=== PATIENT | female | born 1950 | race Caucasian/White ===

== ENCOUNTER → 2016-04-13 | Outpatient (CLI) | payer OTHER, MEDICARE ==
--- NOTE | 2016-04-13 13:09 | RAD ---
EXAM: Renal/retroperitonal ultrasound HISTORY: Hematuria and flank pain. COMPARISON: None. FINDINGS: Ultrasound of the kidneys, bladder and retroperitoneum was performed. The right kidney measures 10.1 cm. Cortical thickness and echogenicity are preserved. There is no hydronephrosis. A hypoechoic focus at the upper pole measures 2.0 x 1.6 cm in is consistent with a cyst. This has correlates on prior studies. The left kidney measures 10.4 cm. Cortical thickness and echogenicity are preserved. There is no hydronephrosis. The liver appears enlarged. Diffuse hepatic steatosis is suspected. The bladder is decompressed and not well visualized. IMPRESSION: 1. Unremarkable examination of the kidneys. No hydronephrosis. 2.0 cm right renal cyst. 2. Hepatomegaly and diffuse hepatic steatosis.
== END | disposition home or self-care (01) ==
LOC: US 11:43
PROVIDERS: ATTEND Internal Medicine
DX: K76.0 Fatty (change of) liver, not elsewhere classified (principal); N28.1 Cyst of kidney, acquired; R16.0 Hepatomegaly, not elsewhere classified; J45.998 Other asthma; I10 Essential (primary) hypertension
CPT/HCPCS: 76770

== ENCOUNTER → 2016-04-18 | Outpatient (CLI) | payer OTHER, MEDICARE ==
--- NOTE | 2016-04-18 11:00 | KCIC ---
Bilateral digital screening mammograms with CAD: HISTORY Routine screening. COMPARISON Comparison is made to previous study dated 12/03/2014. FINDINGS Breast density category C. The skin and nipples show no abnormalities. No abnormal lymph nodes are seen in the axilla. The breast parenchyma shows heterogeneous density. There continues to be some patchy parenchymal asymmetry. There are no dominant masses, suspicious calcifications or architectural distortions. Benign appearing calcifications are present. IMPRESSION No evidence of malignancy. Recommend routine annual mammographic screening. This study was interpreted with the benefit of Computerized Aided Detection (CAD). Mammography is not 100% sensitive in detecting breast cancer. Therefore, a self breast exam and a clinical breast exam are very important. A negative mammogram does not negate a clinically suspicious finding and should not result in a delay in biopsying a clinically suspicious abnormality. BI-RADS category 2. Benign. This patient's information has been entered into a reminder system for the patient to be notified with the results of this examination and a target date for her next mammograms. Electronically signed by: Rita Mccann MD (Apr 18, 2016 10:58:40)
== END | disposition home or self-care (01) ==
LOC: KCIC MAMMO 08:57
PROVIDERS: ATTEND Internal Medicine
DX: Z12.31 Encounter for screening mammogram for malignant neoplasm of breast (principal)
CPT/HCPCS: G0202; 77067

== ENCOUNTER 2016-12-27 16:43 | Emergency (ER) | payer OTHER, MEDICARE ==
[~2016-12-27] VITALS: Ht 160 cm; Wt 80.7 kg
[2016-12-27 17:00] VITALS: BP 164/80
--- NOTE | 2016-12-27 17:47 | RAD ---
EXAM: Right Lower extremity venous Doppler. HISTORY: Right lower extremity pain COMPARISON: None. FINDINGS: Grayscale and Doppler analysis of the Right Lower extremity deep venous systems was performed with graded compression and augmentation. The right common femoral, femoral, and popliteal veins are widely patent with normal color Doppler imaging. Limited images of the right calf veins are unremarkable. IMPRESSION: No evidence of DVT in the right lower extremity. Electronically signed by: Timur Castro MD (12/27/2016 5:44 PM) [facility]
[2016-12-27] MEDS ORDERED: HYDROcodone/APAP 5/325MG 1 TAB TABLET PO ONE (18:00)
--- NOTE | 2016-12-27 18:19 | PHYS DOC ---
Past Medical History Past Medical History: Diabetes-Type II, Kidney Stone, Other Additional Past Medical Histor: lupus, chrons, knee shoulder and back pain Past Surgical History: Hysterectomy, Other Additional Past Surgical Histo: hernia, k stones, back Alcohol Use: Rarely Drug Use: None Adult General Chief Complaint Chief Complaint: LOWER EXT PAIN HPI HPI Patient is a 66 year old female presents the ED complaining of right leg injury times one day. States she was shyness when he lifted her leg and to wash it and felt a pull in the back side of her leg. Patient has a history of chronic leg pain. Describes the pain as sharp. Rates the pain as 8/10. His fever , chest pain, shortness of breath, abdominal pain, trauma, headache, syncope or vision changes. Review of Systems Review of Systems Constitutional: Denies fever or chills [] Eyes: Denies change in visual acuity, redness, or eye pain [] HENT: Denies nasal congestion or sore throat [] Respiratory: Denies cough or shortness of breath [] Cardiovascular: No additional information not addressed in HPI [] GI: Denies abdominal pain, nausea, vomiting, bloody stools or diarrhea [] : Denies dysuria or hematuria [] Musculoskeletal: Denies back pain. Complains of right knee pain.[] Integument: Denies rash or skin lesions [] Neurologic: Denies headache, focal weakness or sensory changes [] Endocrine: Denies polyuria or polydipsia [] All other systems were reviewed and found to be within normal limits, except as documented in this note. Current Medications Current Medications Current Medications Medications (Trade) Dose Ordered Sig/Rama Start Time Stop Time Status Last Admin Dose Admin Acetaminophen/ Hydrocodone Bitart (Lortab 5/325) 1 tab 1X ONCE 12/27/16 18:00 12/27/16 18:01 DC 12/27/16 18:05 1 TAB Allergies Allergies Allergies Coded Allergies Type Severity Reaction Last Updated Verified No Known Drug Allergies 12/27/16 No Physical Exam Physical Exam Constitutional: Well developed, well nourished, no acute distress, non-toxic appearance. [] HENT: Normocephalic, atraumatic, bilateral external ears normal, oropharynx moist, no oral exudates, nose normal. [] Eyes: PERRLA, EOMI, conjunctiva normal, no discharge. [] Neck: Normal range of motion, no tenderness, supple, no stridor. [] Cardiovascular:Heart rate regular rhythm, no murmur [] Lungs & Thorax: Bilateral breath sounds clear to auscultation [] Abdomen: Bowel sounds normal, soft, no tenderness, no masses, no pulsatile masses. [] Skin: Warm, dry, no erythema, no rash. [] Back: No tenderness, no CVA tenderness. [] Extremities: MILD RIGHT KNEE AND CALF TENDERNESS. no cyanosis, no clubbing, ROM intact, no edema. [] Neurologic: Alert and oriented X 3, normal motor function, normal sensory function, no focal deficits noted. [] Psychologic: Affect normal, judgement normal, mood normal. [] Current Patient Data Vital Signs Vital Signs Date Time Temp Pulse Resp B/P (MAP) Pulse Ox O2 Delivery O2 Flow Rate FiO2 12/27/16 18:05 Room Air 12/27/16 17:00 98.6 87 20 95 98.6 EKG EKG [] Radiology/Procedures Radiology/Procedures PROCEDURE: VENOUS LOWER EXTREMITY RIGHT EXAM: Right Lower extremity venous Doppler. HISTORY: Right lower extremity pain COMPARISON: None. FINDINGS: Grayscale and Doppler analysis of the Right Lower extremity deep venous systems was performed with graded compression and augmentation. The right common femoral, femoral, and popliteal veins are widely patent with normal color Doppler imaging. Limited images of the right calf veins are unremarkable. IMPRESSION: No evidence of DVT in the right lower extremity. Electronically signed by: Timur Castro MD (12/27/2016 5:44 PM) [facility][] PROCEDURE: KNEE RIGHT 3V Three-view right knee study: History: Fell today. Pain. Findings: No acute fracture or dislocation or osteolytic process is seen. 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 There is an area of popcorn-like calcification within the upper aspect of the suprapatellar recess. This could represent a loose body or synovial osteochondromatosis of the suprapatellar recess. If this is outside the suprapatellar recess, then this may represent myositis ossificans. Small right knee joint effusion is seen. IMPRESSION: No acute osseous abnormality. See discussion above for additional findings. Course & Med Decision Making Course & Med Decision Making Pertinent Labs and Imaging studies reviewed. (See chart for details) [Discussed imaging findings with patient. Patient's pain improved. Vital stable , no acute distress. Crutches given. Juanito wrap placed. Neurovascular intact post placement. Discussed follow-up with orthopedics later this week. Discussed symptomatic treatment. Provided contact information/education. Discussed reasons to return to the ED. Patient understands and agrees with plan. Dragon Disclaimer Dragon Disclaimer This electronic medical record was generated, in whole or in part, using a voice recognition dictation system. Departure Departure Impression: Primary Impression: Knee pain Additional Impression: Arthritis Disposition: 01 HOME, SELF-CARE Condition: IMPROVED Referrals: MANA FELICIANO MD (PCP) SHAYNE GOMEZ II, MD Patient Instructions: Arthritis, Nonspecific, Knee Pain Problem Qualifiers JOSE CALHOUN Dec 27, 2016 18:19
--- NOTE | 2016-12-28 07:11 | RAD ---
Three-view right knee study: History: Fell today. Pain. Findings: No acute fracture or dislocation or osteolytic process is seen. 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 There is an area of popcorn-like calcification within the upper aspect of the suprapatellar recess. This could represent a loose body or synovial osteochondromatosis of the suprapatellar recess. If this is outside the suprapatellar recess, then this may represent myositis ossificans. Small right knee joint effusion is seen. IMPRESSION: No acute osseous abnormality. See discussion above for additional findings.
== END 2016-12-27 18:39 | disposition home or self-care (01) ==
LOC: ER 16:43
DX: S89.91XA Unspecified injury of right lower leg, initial encounter (principal); M19.90 Unspecified osteoarthritis, unspecified site; E11.9 Type 2 diabetes mellitus without complications; M32.9 Systemic lupus erythematosus, unspecified; K50.90 Crohn's disease, unspecified, without complications; Z87.442 Personal history of urinary calculi; Z90.710 Acquired absence of both cervix and uterus; Z98.890 Other specified postprocedural states; X50.9XXA Other and unspecified overexertion or strenuous movements or postures, initial encounter; Y93.89 Activity, other specified; Y99.8 Other external cause status; Y92.89 Other specified places as the place of occurrence of the external cause
CPT/HCPCS: 73562; 93971; 99284-25

== ENCOUNTER → 2017-01-04 | Outpatient (CLI) | payer OTHER, MEDICARE ==
[2016-12-27 17:00] VITALS: BP 164/80
--- NOTE | 2017-01-04 14:17 | KCIC ---
Left lower extremity venous doppler ultrasound History: Swelling of left lower extremity Comparison: None Findings: Multiple grayscale, color, and duplex spectral analysis sonographic images were acquired of the left lower extremity veins to evaluate for the presence of DVT. There is normal phasicity. Normal compression, color-flow, and augmentation is demonstrated from the left common femoral to the popliteal veins. There is normal color flow of the proximal greater saphenous and profunda femoris veins. There is normal color flow of segments of the calf veins. There is left popliteal fossa fluid collection 2.4 x 1 x 2 cm. Impression: 1. There is no evidence of deep venous thrombosis from the left common femoral to popliteal veins. Electronically signed by: Guillermo Alonso MD (01/04/2017 2:14 PM) [facility]
== END | disposition home or self-care (01) ==
LOC: KCIC US 13:03
PROVIDERS: ATTEND Nurse Practitioner
DX: M79.89 Other specified soft tissue disorders (principal)
CPT/HCPCS: 93971

== ENCOUNTER 2018-04-22 08:45 | Emergency (ER) | payer OTHER, MEDICARE ==
[~2018-04-22] VITALS: Ht 165.1 cm; Wt 79.1 kg
[2018-04-22] MEDS ORDERED: IV NORMAL SALINE 1000ML BAG 1,000 ML IV SCH (09:09)
[2018-04-22 09:11] LABS: BILIRUBIN,URINE SMALL (NEG); CLARITY,URINE CLEAR; COLOR,URINE AMBER; NITRITE,URINE NEGATIVE (NEG); PROTEIN,URINE NEGATIVE (NEG-TRACE); UROBILINOGEN,URINE 0.2 mg/dL (0.2 mg/dL)
--- NOTE | 2018-04-22 09:11 | PHYS DOC ---
Past Medical History Past Medical History: Diabetes-Type II, Kidney Stone, Other Additional Past Medical Histor: lupus, chrons, knee shoulder and back pain Past Surgical History: Hysterectomy, Other Additional Past Surgical Histo: hernia, k stones, back Alcohol Use: Rarely Drug Use: None Adult General Chief Complaint Chief Complaint: ABDOMINAL PAIN HPI HPI Patient is a 67 year old female who presents with Sunday began having right lower abdominal pain that wraps around to her right flank is sharp in nature with urinary frequency. Patient denies any pain with urination but states she feels like she has to go often and when she sits to go with just a dribble. Review of Systems Review of Systems Constitutional: Denies fever or chills [] Eyes: Denies change in visual acuity, redness, or eye pain [] HENT: Denies nasal congestion or sore throat [] Respiratory: Denies cough or shortness of breath [] Cardiovascular: No additional information not addressed in HPI [] GI: Right lower abdominal pain that wraps around to right back, nausea, denies vomiting, bloody stools or diarrhea [] : Denies dysuria or hematuria [] Musculoskeletal: Denies back pain or joint pain [] Integument: Denies rash or skin lesions [] Neurologic: Denies headache, focal weakness or sensory changes [] All other systems were reviewed and found to be within normal limits, except as documented in this note. Current Medications Current Medications Current Medications Medications (Trade) Dose Ordered Sig/[facility] Start Time Stop Time Status Last Admin Dose Admin Fentanyl Citrate (Fentanyl 2ml Vial) 50 mcg 1X ONCE 04/22/18 09:15 04/22/18 09:16 DC 04/22/18 10:01 50 MCG Ketorolac Tromethamine (Toradol 30mg Vial) 30 mg 1X ONCE 04/22/18 10:45 04/22/18 10:46 Ondansetron HCl (Zofran) 4 mg 1X ONCE 04/22/18 09:15 04/22/18 09:16 DC 04/22/18 09:58 4 MG Sodium Chloride 1,000 ml @ 1,000 mls/hr Q1H 04/22/18 09:09 04/22/18 10:08 DC 04/22/18 09:56 1,000 MLS/HR Allergies Allergies Allergies Coded Allergies Type Severity Reaction Last Updated Verified No Known Drug Allergies 12/27/16 No Physical Exam Physical Exam Constitutional: Well developed, well nourished, no acute distress, non-toxic appearance. [] HENT: Normocephalic, atraumatic, bilateral external ears normal, oropharynx moist, no oral exudates, nose normal. [] Eyes: PERRLA, EOMI, conjunctiva normal, no discharge. [] Neck: Normal range of motion, no tenderness, supple, no stridor. [] Cardiovascular:Heart rate regular rhythm, no murmur [] Lungs & Thorax: Bilateral breath sounds clear to auscultation [] Abdomen: Bowel sounds normal, soft, Right lower quadrant tenderness, no masses, no pulsatile masses. [] Skin: Warm, dry, no erythema, no rash. [] Back: No tenderness, no CVA tenderness. [] Extremities: No tenderness, no cyanosis, no clubbing, ROM intact, no edema. [] Neurologic: Alert and oriented X 3, normal motor function, normal sensory function, no focal deficits noted. [] Psychologic: Affect normal, judgement normal, mood normal. [] Current Patient Data Vital Signs Vital Signs Date Time Temp Pulse Resp B/P (MAP) Pulse Ox O2 Delivery O2 Flow Rate FiO2 04/22/18 10:01 7 96 Room Air 04/22/18 08:57 97.6 85 197/85 (122) 97.6 Lab Values Laboratory Tests Test 04/22/18 08:55 04/22/18 09:46 Urine Collection Type Void Urine Color Rhea Urine Clarity Clear Urine pH 5.0 Urine Specific [place] >=1.030 Urine Protein Negative mg/dL (NEG-TRACE) Urine Glucose (UA) Negative mg/dL (NEG) Urine Ketones (Stick) Trace mg/dL (NEG) Urine Blood Negative (NEG) Urine Nitrite Negative (NEG) Urine Bilirubin Small (NEG) Urine Urobilinogen Dipstick 0.2 mg/dL (0.2 mg/dL) Urine Leukocyte Esterase Negative (NEG) Urine RBC 1-2 /HPF (0-2) Urine WBC 1-4 /HPF (0-4) Urine Squamous Epithelial Cells Many /LPF Urine Bacteria Few /HPF (0-FEW) Urine Hyaline Casts Occasional /HPF Urine Mucus Marked /LPF White Blood Count 7.2 x10^3/uL (4.0-11.0) Red Blood Count 3.88 x10^6/uL (3.50-5.40) Hemoglobin 11.3 g/dL (12.0-15.5) L Hematocrit 34.2 % (36.0-47.0) L Mean Corpuscular Volume 88 fL (79-100) Mean Corpuscular Hemoglobin 29 pg (25-35) Mean Corpuscular Hemoglobin Concent 33 g/dL (31-37) Red Cell Distribution Width 15.3 % (11.5-14.5) H Platelet Count 283 x10^3/uL (140-400) Neutrophils (%) (Auto) 69 % (31-73) Lymphocytes (%) (Auto) 21 % (24-48) L Monocytes (%) (Auto) 7 % (0-9) Eosinophils (%) (Auto) 2 % (0-3) Basophils (%) (Auto) 1 % (0-3) Neutrophils # (Auto) 5.0 x10^3uL (1.8-7.7) Lymphocytes # (Auto) 1.5 x10^3/uL (1.0-4.8) Monocytes # (Auto) 0.5 x10^3/uL (0.0-1.1) Eosinophils # (Auto) 0.1 x10^3/uL (0.0-0.7) Basophils # (Auto) 0.0 x10^3/uL (0.0-0.2) Sodium Level 141 mmol/L (136-145) Potassium Level 3.5 mmol/L (3.5-5.1) Chloride Level 101 mmol/L (98-107) Carbon Dioxide Level 27 mmol/L (21-32) Anion Gap 13 (6-14) Blood Urea Nitrogen 17 mg/dL (7-20) Creatinine 0.9 mg/dL (0.6-1.0) Estimated GFR (Cockcroft-Gault) 62.8 BUN/Creatinine Ratio 19 (6-20) Glucose Level 167 mg/dL (70-99) H Calcium Level 8.9 mg/dL (8.5-10.1) Total Bilirubin 0.3 mg/dL (0.2-1.0) Aspartate Amino Transferase (AST) 18 U/L (15-37) Alanine Aminotransferase (ALT) 19 U/L (14-59) Alkaline Phosphatase 141 U/L (46-116) H Troponin I Quantitative < 0.017 ng/mL (0.000-0.055) Total Protein 6.6 g/dL (6.4-8.2) Albumin 3.3 g/dL (3.4-5.0) L Albumin/Globulin Ratio 1.0 (1.0-1.7) Laboratory Tests 04/22/18 09:46 Laboratory Tests 04/22/18 09:46 EKG EKG Sinus Rhythm and no STEMI Interpretation Time: [address] Spears Radiology/Procedures Radiology/Procedures [] Impressions: [facility] [address] [place] [address] IMAGING REPORT Signed PATIENT: BLAKE SANDERS ACCOUNT: [id number] : 1950 LOCATION: ER AGE: 67 SEX: F EXAM STATUS: REG ER ORD. PHYSICIAN: RUI PARKINSON APRN REASON: rightl lower abd pain to right flank PROCEDURE: CT ABDOMEN PELVIS WO CONTRAST EXAM: CT Abdomen and Pelvis without IV contrast CLINICAL HISTORY: Right lower abd pain to right flank COMPARISON: none TECHNIQUE: Helical CT of the abdomen and pelvis without intravenous contrast. Axial, coronal and sagittal reformatted images were generated. PQRS compliance statement - One or more of the following individualized dose reduction techniques were utilized for this study: 1. Automated exposure control 2. Adjustment of the mA and/or kV according to patient size 3. Use of iterative reconstruction technique FINDINGS: Lack of intravenous contrast limits evaluation of solid organs, vasculature, and lymph nodes. Lower chest: Linear opacities in the lower lobes likely scarring/atelectasis. Mild emphysematous changes are seen. 4 mm pleural-based left lower lobe lung nodule (image 18) is seen. Abdomen and Pelvis: No focal liver lesion. Diffuse hepatic hypoattenuation. Liver is enlarged measuring 20.4 cm in length. High density material layering dependently within the gallbladder likely sludge. No biliary ductal dilatation. Spleen is unremarkable. Pancreas is unremarkable. The right adrenal gland is unremarkable. Mild nodular thickening of the left adrenal gland grossly unchanged to 09/11/2004 Punctate calcifications within both kidneys, likely nonobstructing calculi. No hydronephrosis or hydroureter. No definite ureteral or bladder calculi are seen. Right upper pole hypodense renal cystic lesion is seen. No hydronephrosis. Appendix is normal. No small or large bowel dilatation. Moderate colonic stool content. Colonic diverticula are seen without evidence for acute diverticulitis. Minimal fat infiltration is seen about the distal ileum, nonspecific enteritis is suspected. No abdominal or pelvic ascites. No abdominal or pelvic lymphadenopathy by size criteria. Prominent retroperitoneal and mesenteric lymph nodes are seen, possibly reactive. Aortic calcifications are seen. Bones: Multilevel degenerative changes of the spine are seen. Anterolisthesis of L4 on L5 with bilateral L4 pars defects are seen. IMPRESSION: 1. Punctate nonobstructing bilateral renal calculi. No ureteral or bladder calculi or evidence for hydronephrosis. 2. Trace fat infiltration is seen about the distal ileum, consistent with enteritis, nonspecific but may be infectious or inflammatory in nature. 3. Colonic diverticula are seen without evidence for acute diverticulitis. Appendix is normal. 4. No evidence for bowel obstruction. 5. Hepatomegaly and likely hepatic steatosis. 6. High density material layering dependently within the gallbladder likely sludge. No evidence for acute cholecystitis. Electronically signed by: Maximino Drake MD (04/22/2018 10:29 AM) [facility] DICTATED and SIGNED BY: MAXIMINO DRAKE MD DATE: 04/22/18 1002 Course & Med Decision Making Course & Med Decision Making Patient is a 67 year old female who presents with Sunday began having right lower abdominal pain that wraps around to her right flank is sharp in nature with urinary frequency. Patient denies any pain with urination but states she feels like she has to go often and when she sits to go with just a dribble. Alert and oriented. Skin pink warm and dry. Mucus membranes moist. Patient denies vomiting or diarrhea or fever. Patient states she does have some nausea that she when the pain hits. Right lower abdominal tenderness with palpation but no CVA tenderness. Abdomen is soft and only tender in the right lower quadrant. Vital signs within normal limits. Afebrile. Denies chest pain, shortness of air, dizziness. No extremity swelling. Heart rate regular without murmur. PERRLA. Neurologically intact. Denies any numbness or tingling. Ambulatory with a steady gait. Speaks in full clear sentences. CT abdomen pelvis shows: 1. Punctate nonobstructing bilateral renal calculi. No ureteral or bladder calculi or evidence for hydronephrosis. 2. Trace fat infiltration is seen about the distal ileum, consistent with enteritis, nonspecific but may be infectious or inflammatory in nature. 3. Colonic diverticula are seen without evidence for acute diverticulitis. Appendix is normal. 4. No evidence for bowel obstruction. 5. Hepatomegaly and likely hepatic steatosis. 6. High density material layering dependently within the gallbladder likely sludge. No evidence for acute cholecystitis. Patient is likely having renal colic from bilateral renal calculi. Urinalysis shows no infection but since patient is having dysuria symptoms or treat her with Keflex. I will refer her to a urologist follow-up with allergic to follow- up with her primary care provider. Patient is drink plenty of fluids. Dragon Disclaimer Dragon Disclaimer This electronic medical record was generated, in whole or in part, using a voice recognition dictation system. Departure Departure Impression: Primary Impression: Kidney stone Disposition: HOME, SELF-CARE Condition: STABLE Referrals: MANA FELICIANO MD (PCP) Patient Instructions: Kidney Stones Additional Instructions: Follow up with primary care or urology. Drink plenty of fluids and take medication as prescribed. Scripts Cephalexin (KEFLEX) 500 Mg Capsule 1 CAP PO BID, #14 CAP Prov: RUI PARKINSON APRN 04/22/18 Hydrocodone/Apap 5-325 (NORCO 5-325 TABLET) 1 Each Tablet 1 TAB PO PRN Q6HRS PRN for PAIN, #10 TAB 0 Refills Prov: RUI PARKINSON APRN 04/22/18 RUI PARKINSON APRN Apr 22, 2018 09:11
[2018-04-22] MEDS ORDERED: ONDANSETRON PF 4 MG/2 ML VIAL. IV ONE (09:15)
[2018-04-22] MEDS ORDERED: fentaNYL PF VIAL 100 MCG/2 ML VIAL IV ONE (09:15)
[2018-04-22 09:21] LABS: BACTERIA,URINE FEW /HPF (0-FEW); HYALINE CASTS, URINE OCCASIONAL /HPF; SQUAMOUS EPITHELIAL CELL,UR MANY /LPF
[2018-04-22 09:53] LABS: BASO % 1 % (0-3); EOS # 0.1 x10^3/uL (0.0-0.7); EOS % 2 % (0-3); HEMATOCRIT 34.2 % (36.0-47.0); HEMOGLOBIN 11.3 g/dL (12.0-15.5); LYMPH # 1.5 x10^3/uL (1.0-4.8); LYMPH % 21 % (24-48); MEAN CORPUSCULAR HEMOGLOBIN 29 pg (25-35); MEAN CORPUSCULAR HGB CONC 33 g/dL (31-37); MEAN CORPUSCULAR VOLUME 88 fL (79-100); MONO # 0.5 x10^3/uL (0.0-1.1); MONO % 7 % (0-9); NEUT % 69 % (31-73); PLATELET COUNT 283 x10^3/uL (140-400); RED BLOOD COUNT 3.88 x10^6/uL (3.50-5.40); RED CELL DISTRIBUTION WIDTH 15.3 % (11.5-14.5); WHITE BLOOD COUNT 7.2 x10^3/uL (4.0-11.0)
[2018-04-22 10:04] LABS: CALCIUM 8.9 mg/dL (8.5-10.1)
[2018-04-22 10:05] LABS: CREATININE 0.9 mg/dL (0.6-1.0); GFR 62.8; POTASSIUM 3.5 mmol/L (3.5-5.1)
[2018-04-22 10:10] LABS: ALBUMIN 3.3 g/dL (3.4-5.0); TOTAL BILIRUBIN 0.3 mg/dL (0.2-1.0); TOTAL PROTEIN 6.6 g/dL (6.4-8.2)
[2018-04-22 10:30] VITALS: BP 153/67
--- NOTE | 2018-04-22 10:32 | RAD ---
EXAM: CT Abdomen and Pelvis without IV contrast CLINICAL HISTORY: Right lower abd pain to right flank COMPARISON: none TECHNIQUE: Helical CT of the abdomen and pelvis without intravenous contrast. Axial, coronal and sagittal reformatted images were generated. PQRS compliance statement - One or more of the following individualized dose reduction techniques were utilized for this study: 1. Automated exposure control 2. Adjustment of the mA and/or kV according to patient size 3. Use of iterative reconstruction technique FINDINGS: Lack of intravenous contrast limits evaluation of solid organs, vasculature, and lymph nodes. Lower chest: Linear opacities in the lower lobes likely scarring/atelectasis. Mild emphysematous changes are seen. 4 mm pleural-based left lower lobe lung nodule (image 18) is seen. Abdomen and Pelvis: No focal liver lesion. Diffuse hepatic hypoattenuation. Liver is enlarged measuring 20.4 cm in length. High density material layering dependently within the gallbladder likely sludge. No biliary ductal dilatation. Spleen is unremarkable. Pancreas is unremarkable. The right adrenal gland is unremarkable. Mild nodular thickening of the left adrenal gland grossly unchanged to 09/11/2004 Punctate calcifications within both kidneys, likely nonobstructing calculi. No hydronephrosis or hydroureter. No definite ureteral or bladder calculi are seen. Right upper pole hypodense renal cystic lesion is seen. No hydronephrosis. Appendix is normal. No small or large bowel dilatation. Moderate colonic stool content. Colonic diverticula are seen without evidence for acute diverticulitis. Minimal fat infiltration is seen about the distal ileum, nonspecific enteritis is suspected. No abdominal or pelvic ascites. No abdominal or pelvic lymphadenopathy by size criteria. Prominent retroperitoneal and mesenteric lymph nodes are seen, possibly reactive. Aortic calcifications are seen. Bones: Multilevel degenerative changes of the spine are seen. Anterolisthesis of L4 on L5 with bilateral L4 pars defects are seen. IMPRESSION: 1. Punctate nonobstructing bilateral renal calculi. No ureteral or bladder calculi or evidence for hydronephrosis. 2. Trace fat infiltration is seen about the distal ileum, consistent with enteritis, nonspecific but may be infectious or inflammatory in nature. 3. Colonic diverticula are seen without evidence for acute diverticulitis. Appendix is normal. 4. No evidence for bowel obstruction. 5. Hepatomegaly and likely hepatic steatosis. 6. High density material layering dependently within the gallbladder likely sludge. No evidence for acute cholecystitis. Electronically signed by: Maximino Lopez MD (04/22/2018 10:29 AM) [facility]
[2018-04-22] MEDS ORDERED: KETOROLAC 30 MG/ML VIAL. IV ONE (10:45)
[2018-04-22] MEDS ORDERED: CEPH-264 PO (10:45)
[2018-04-22] MEDS ORDERED: HYDR-3164 PO (10:45)
--- NOTE | 2018-04-22 11:41 | EKG ---
[facility] [address] [place] [address] Test Date: 2018-04-22 Test Time: 09:23:26 Pat Name: BLAKE SANDERS Department: Room: Gender: F Land [employer] Examiner: : 1950 Requested By: RUI PARKINSON Order Number: [id number] Reading MD: Dennis Zamarripa MD Measurements Intervals Pound Rate: 70 P: -50 WV: 176 QRS: 20 QRSD: 88 T: 80 QT: 404 QTc: 439 Interpretive Statements SINUS RHYTHM Electronically Signed On 04-23-2018 7:02:22 [employer]NAGER MEDIC[employer] by Dennis Zamarripa MD
== END 2018-04-22 11:07 | disposition home or self-care (01) ==
LOC: ER 08:45
DX: N20.0 Calculus of kidney (principal); R16.0 Hepatomegaly, not elsewhere classified; E11.9 Type 2 diabetes mellitus without complications; Z90.710 Acquired absence of both cervix and uterus
CPT/HCPCS: 36415; 74176; 80053; 81001; 84484; 85025; 93005; 96374; 96375; 99284; J1885; J2405; J3010; J7030; 99283

== ENCOUNTER 2018-06-04 16:08 | Emergency (ER) | payer OTHER, MEDICARE ==
[~2018-06-04] VITALS: Ht 157.5 cm; Wt 77.1 kg
[~2018-06-04 16:08] MED LIST: CEPH-264 PO; HYDR-3164 PO
[2018-06-04 16:12] VITALS: BP 158/90
--- NOTE | 2018-06-04 16:22 | PHYS DOC ---
Past Medical History Past Medical History: Diabetes-Type II Additional Past Medical Histor: lupus (JOSE CALHOUN) Past Surgical History: No Surgical History, Tonsillectomy Additional Past Surgical Histo: kidney stones, back surgery, hernia (JOSE CALHOUN) Alcohol Use: Rarely Drug Use: None (JOSE CALHOUN) Adult General Chief Complaint Chief Complaint: LOWER BACK PAIN OR INJURY [facility] HPI Patient is a 67 year old female with a history of back pain presents to the ED complaining of lower back injury times one day ago. Patient states that she was working in the kitchen and she bent over and felt a sharp pain in her lower back. Describes the pain as sharp. Rates the pain as 9 out of 10. Patient takes hydrocodone daily and states it is not touching her pain. Patient uses a cane to walk with per her normal. Denies bowel/bladder change, saddle anesthesia, inability to walk, paresthesias, calf pain/swelling, chest pain, shortness of breath or fever. (JOSE CALHOUN) Review of Systems Review of Systems Constitutional: Denies fever or chills [] Eyes: Denies change in visual acuity, redness, or eye pain [] HENT: Denies nasal congestion or sore throat [] Respiratory: Denies cough or shortness of breath [] Cardiovascular: No additional information not addressed in HPI [] GI: Denies abdominal pain, nausea, vomiting, bloody stools or diarrhea [] : Denies dysuria or hematuria [] Musculoskeletal: Complains of back pain. Denies joint pain [] Integument: Denies rash or skin lesions [] Neurologic: Denies headache, focal weakness or sensory changes [] All other systems were reviewed and found to be within normal limits, except as documented in this note. (JOSE CALHOUN) Current Medications Current Medications Current Medications Medications (Trade) Dose Ordered Sig/Rama Start Time Stop Time Status Last Admin Dose Admin Ketorolac Tromethamine (Toradol 30mg Vial) 30 mg 1X ONCE 06/04/18 16:30 06/04/18 16:31 DC 06/04/18 16:43 30 MG Oxycodone/ Acetaminophen (Percocet 5/325) 1 tab 1X ONCE 06/04/18 16:30 06/04/18 16:31 DC 06/04/18 16:43 1 TAB (RACHEL CORTEZ MD) Allergies Allergies Allergies Coded Allergies Type Severity Reaction Last Updated Verified No Known Drug Allergies 12/27/16 No (RACHEL CORTEZ MD) Physical Exam Physical Exam Constitutional: Well developed, well nourished, no acute distress, non-toxic appearance. [] HENT: Normocephalic, atraumatic Eyes: PERRLA, EOMI, conjunctiva normal, no discharge. [] Neck: Normal range of motion, no tenderness, supple, no stridor. [] Cardiovascular:Heart rate regular rhythm, no murmur [] Lungs & Thorax: Bilateral breath sounds clear to auscultation [] Abdomen: Bowel sounds normal, soft, no tenderness, no masses, no pulsatile masses. [] Skin: Warm, dry, no erythema, no rash. [] Back: mild lumbar paraspinal tenderness. Decreased ROM with flexion due to pain. NV intact. No overlying skin changes. no CVA tenderness. [] Extremities: No tenderness, no cyanosis, no clubbing, ROM intact, no edema. [] Neurologic: Alert and oriented X 3, normal motor function, normal sensory function, no focal deficits noted. DTR's intact. [] Psychologic: Affect normal, judgement normal, mood normal. [] (JOSE CALHOUN) Current Patient Data Vital Signs Vital Signs Date Time Temp Pulse Resp B/P (MAP) Pulse Ox O2 Delivery O2 Flow Rate FiO2 06/04/18 16:43 15 Room Air 06/04/18 16:12 97.7 103 158/90 (112) 96 97.7 (RACHEL CORTEZ MD) EKG EKG [] (JOSE CALHOUN) Radiology/Procedures Radiology/Procedures CT of the lumbar spine without contrast, 06/04/2018: HISTORY: Low back pain Noncontrast scans were obtained with multiplanar reconstructions produced. The lumbar vertebral heights are well-maintained. There are moderate scattered marginal spurs. There are moderate degenerative changes involving multiple facet joints bilaterally. There is bilateral spondylolysis at L4. This results in a mild grade 1 anterolisthesis at L4-5. There is moderate associated broad-based posterior disc protrusion. There is abnormal tissue effacing the epidural fat in the right neural foramen suggesting a herniated disc fragment versus scarring. This severely narrows the right neural foramen. There is also moderate left foraminal narrowing at this level as well as mild central spinal stenosis. At L1-2 there is minimal posterior disc bulging. The central spinal canal and neural foramina are well-maintained. At L2-3 there is mild broad-based posterior disc bulging. The central spinal canal and neural foramina are well-maintained. At L3-4 there is moderate broad-based posterior disc bulging which in conjunction with posterior ligamentous thickening related to facet joint arthropathy is causing borderline narrowing of the central spinal canal in a triangular configuration. The neural foramina at this level are fairly well-maintained. At L5-S1 there is mild broad-based posterior disc bulging without significant central spinal stenosis. The neural foramina are fairly well-maintained. Incidental note is made of a low-density left adrenal nodule better demonstrated on the CT study of 04/22/2018. This is compatible with a benign adenoma. Small bilateral intrarenal calculi are noted. There is a cyst in the lower pole of the right kidney. There is moderate calcific plaquing of the abdominal aorta and its branches. IMPRESSION: 1. Moderate multilevel degenerative changes as described above. 2. Bilateral spondylolysis at L4 with a grade 1 spondylolisthesis at L4-5 and mild central spinal stenosis. 3. Moderate broad-based posterior disc protrusion at L4-5, worse on the right, with severe right and moderate left foraminal encroachment at that level.[] (JOSE CALHOUN) Course & Med Decision Making Course & Med Decision Making Pertinent Labs and Imaging studies reviewed. (See chart for details) []Discussed imaging findings with patient. Patient's pain improved in ED. Patient able to ambulate per her normal with cane. No focal neural deficits. Discussed symptomatic treatment and continue medication outpatient. Discussed follow-up with PCP/orthopedics for further evaluation and possible MRI. Provided contact information/education. Discussed reasons to return to the ED. Patient understands and agrees with plan. (JOSE CALHOUN) Course & Med Decision Making Staff Physician Addendum: I was working in the ER during the course of this patient's visit. I was available for consultation as needed, but I was not directly involved in the care of this patient. (LENAGRACHEL ABEBE Disclaimer Dragon Disclaimer This electronic medical record was generated, in whole or in part, using a voice recognition dictation system. (JOSE CALHOUN) Departure Departure Impression: Primary Impression: Back pain Additional Impressions: Spondylosis Spinal stenosis Disposition: HOME, SELF-CARE Condition: IMPROVED Referrals: MANA FELICIANO MD (PCP) SHAYNE GOMEZ II, MD, FRANK P MD Patient Instructions: Back Pain, Adult, Spinal Stenosis, Spondylolysis with Rehab-SportsMed Problem Qualifiers JOSE CALHOUN Jun 04, 2018 16:22 RACHEL CORTEZ MD Jun 06, 2018 04:24
[2018-06-04] MEDS ORDERED: oxyCODONE/APAP 5/325 1 TAB TABLET PO ONE (16:30)
[2018-06-04] MEDS ORDERED: KETOROLAC 30 MG/ML VIAL. IM ONE (16:30)
--- NOTE | 2018-06-04 16:59 | RAD ---
CT of the lumbar spine without contrast, 06/04/2018: HISTORY: Low back pain Noncontrast scans were obtained with multiplanar reconstructions produced. The lumbar vertebral heights are well-maintained. There are moderate scattered marginal spurs. There are moderate degenerative changes involving multiple facet joints bilaterally. There is bilateral spondylolysis at L4. This results in a mild grade 1 anterolisthesis at L4-5. There is moderate associated broad-based posterior disc protrusion. There is abnormal tissue effacing the epidural fat in the right neural foramen suggesting a herniated disc fragment versus scarring. This severely narrows the right neural foramen. There is also moderate left foraminal narrowing at this level as well as mild central spinal stenosis. At L1-2 there is minimal posterior disc bulging. The central spinal canal and neural foramina are well-maintained. At L2-3 there is mild broad-based posterior disc bulging. The central spinal canal and neural foramina are well-maintained. At L3-4 there is moderate broad-based posterior disc bulging which in conjunction with posterior ligamentous thickening related to facet joint arthropathy is causing borderline narrowing of the central spinal canal in a triangular configuration. The neural foramina at this level are fairly well-maintained. At L5-S1 there is mild broad-based posterior disc bulging without significant central spinal stenosis. The neural foramina are fairly well-maintained. Incidental note is made of a low-density left adrenal nodule better demonstrated on the CT study of 04/22/2018. This is compatible with a benign adenoma. Small bilateral intrarenal calculi are noted. There is a cyst in the lower pole of the right kidney. There is moderate calcific plaquing of the abdominal aorta and its branches. IMPRESSION: 1. Moderate multilevel degenerative changes as described above. 2. Bilateral spondylolysis at L4 with a grade 1 spondylolisthesis at L4-5 and mild central spinal stenosis. 3. Moderate broad-based posterior disc protrusion at L4-5, worse on the right, with severe right and moderate left foraminal encroachment at that level. PQRS Compliance Statement: One or more of the following individualized dose reduction techniques were utilized for this examination: 1. Automated exposure control 2. Adjustment of the mA and/or kV according to patient size 3. Use of iterative reconstruction technique Electronically signed by: Wander Jackson MD (06/04/2018 4:56 PM) [facility]
== END 2018-06-04 17:19 | disposition home or self-care (01) ==
LOC: ER 16:08
DX: M48.061 Spinal stenosis, lumbar region without neurogenic claudication (principal); M47.896 Other spondylosis, lumbar region; E11.9 Type 2 diabetes mellitus without complications; Z90.89 Acquired absence of other organs
CPT/HCPCS: 72131; 96372; 99284; J1885

== ENCOUNTER → 2018-11-19 | Outpatient (CLI) | payer OTHER, MEDICARE ==
--- NOTE | 2018-11-19 10:37 | KCIC ---
Bilateral digital screening mammograms: Reason for examination: Routine screening. Comparison is made to previous studies dated back to 07/01/2010. Interpretation was made with the benefit of CAD. The skin and nipples show no abnormalities. No abnormal axillary lymph nodes are seen. The breast parenchyma is heterogeneously dense. (Breast density: Category C) There are persistent nodular areas of asymmetric parenchyma which are stable. There are no new masses, suspicious calcifications or architectural distortion. A few benign calcifications are again seen. Impression: No evidence of malignancy. Recommend routine screening. Your patient's mammogram demonstrates that she has dense breast tissue (breast density category C or D), which could hide abnormalities, and if she has other risk factors for breast cancer that have been identified, she might benefit from supplemental screening tests that may be suggested by you as her ordering physician. Dense breast tissue, in and of itself, is a relatively common condition. Therefore, this information is not provided to cause undue concern, but rather to raise your awareness and to promote discussion with your patient regarding the presence of other risk factors, in addition to dense breast tissue. Your patient's mammography results will be sent to her. BI-RADS Category 2: Benign. "Our facility is accredited by the [employer] Mammography Program." This patient's information has been entered into a reminder system for the patient to be notified with the results of her examination and a target date for the next mammogram. Electronically signed by: Mayra Mccann MD (11/19/2018 10:34 AM) [id number]
--- NOTE | 2018-11-19 13:14 | KCIC ---
EXAM: Dual energy x-ray absorptiometry (DEXA). HISTORY: Postmenopausal female presents for osteoporosis screening. COMPARISON: 12/03/2014. TECHNIQUE: Dual energy x-ray absorptiometry of the lumbar spine and left was performed. Calculation of bone mineral density based on standard deviations above or below the expected young adult normal value (T-score) was completed. FINDINGS: The average bone mineral density in the 1st through 4th lumbar vertebrae is 1.222 g/cmxcm, corresponding with a T-score of 1.6. There has been a 2.9% decrease in density of the lumbar spine compared to the prior study. The average total bone mineral density in the left hip is 0.817 g/cmxcm, corresponding with a T-score of -1.0. There has been a 13.2% decrease in density of the left hip compared to the prior study. IMPRESSION: 1. Normal bone mineral density measured the lumbar spine. 2. Borderline osteopenia measured at the left hip. Note: Definitions established by the World Health Organization: 1. Normal: T-score is -1.0 or above. 2. Osteopenia: T-score is between -1.0 and -2.5 . 3. Osteoporosis: T-score is -2.5 or below. Electronically signed by: Salome Valladares MD (11/19/2018 1:12 PM) [place] [id number]
== END | disposition home or self-care (01) ==
LOC: KCIC DEXA 09:14
PROVIDERS: ATTEND Internal Medicine
DX: Z12.31 Encounter for screening mammogram for malignant neoplasm of breast (principal); Z13.820 Encounter for screening for osteoporosis; N64.89 Other specified disorders of breast; M81.0 Age-related osteoporosis without current pathological fracture
CPT/HCPCS: 77067; 77080

== ENCOUNTER → 2019-07-31 | Outpatient (CLI) | payer OTHER, MEDICARE ==
[~2019-07-31] MED LIST changes: +ALBU2.5V8 INH; +ALLO300T PO; +AMOX1TAB61 PO; +ASPI81TA59 PO; +ATOR40TA PO; +BUDE10.2 IH; +CETI10TA24 PO; +DULO60CA6 PO; +FLUT9.9S NS; +GABA600T PO; +GLIP5TAB10 PO; +HYDR12.575 PO; +HYDR200T71 PO; +LISI40TA2 PO; +MELA10TA PO; +METF850T8 PO; +METH4TAB PO; +MONT10TA49 PO
== END | disposition home or self-care (01) ==
LOC: LAB 12:32
PROVIDERS: ATTEND Internal Medicine Gastroenterology
DX: Z01.818 Encounter for other preprocedural examination (principal); Z11.59 Encounter for screening for other viral diseases
CPT/HCPCS: C9803-CS; U0003-CS

== ENCOUNTER → 2019-08-04 | Day surgery (SDC) | payer OTHER, MEDICARE ==
[~2019-08-04] MED LIST changes: +IV RINGERS,LACTATED 1000ML 1,000 ML IV SCH; +PROPOFOL 10 MG/ML (20ML) VIAL. IV ONE
--- NOTE | 2019-08-04 13:07 | PDOC4 ---
PROCEDURE Procedure EGD/biopsies/anderson dilation Indication; Dysphagia Meds: per anesthesia Findings: E--Scattered small white dots throughout c/w Juanis. Biopsies x 2. Tertiary contractions. Healed reflux at 35cm. G--Normal. D--Normal to second portion. Dilated empirically with 50F anderson x 1 w/o resistance. Rowdy. well. IMP: Reflux, healed. Presbyesophagus suspect. Possible Candidiasis; not symptomatic currently. REC: Continue PPI. Await biopsies; if positive for Juanis, will treat. F/u in 2 weeks re: biopsies, response to dilation. If not better from dilation, consider barium swallow and perhaps prokinetic. ROXIE MIRELES MD Aug 04, 2019 13:07
[2019-08-04 13:31] VITALS: BP 126/64
--- NOTE | 2019-08-06 17:06 | PATHOLOGY ---
[facility] Accession Number: [id number] . 01 Material submitted: . esophagus - ESOPHAGEAL BX . 01 Clinical history: . Dysphagia Rule out lotus . 02 Diagnosis: Esophageal biopsy: - Segments of hyperplastic squamous esophageal mucosa, consistent with reflux esophagitis. (JPM:abraham; 08/05/2019) QMS 08/05/2019 1242 Local . 02 Comment: Sections of the esophageal biopsy reveal segments of hyperplastic squamous esophageal mucosa. There are focal intraepithelial neutrophils. A PAS stain for yeast/fungi is obtained and yields the following results: . PAS for yeast/fungi (A1): Negative for yeast/fungi. . . The morphologic findings are supportive of the diagnosis of reflux esophagitis. There is no evidence of Price's change, dysplasia, or malignancy. (JPM:abraham/pit; 08/05/2019) . Special stain performed: PAS for yeast/fungus . 02 Electronically signed: . Thom Farnsworth MD, Pathologist NPI- [id number] . 01 Gross description: . The specimen is received in formalin, labeled "Brown, Randi, esophageal BX" and consists of multiple fragments of white tissue measuring 0.9 x 0.4 x 0.1 cm in aggregate which are entirely submitted in A1. (JMF; 08/04/2019) JFQ/JFQ 08/04/2019 1908 Local . 02 Pathologist provided ICD-10: R13.10 . 02 CPT . 393239, 248249 Specimen Comment: A courtesy copy of this report has been sent to [phone], [phone] Specimen Comment: [id number] Specimen Comment: Report sent to / DR FELICIANO Specimen Comment: Report sent to Performed at: [address] [place], [place] [address] [facility] [address], [place], [place] [id number] MD Yonny Hogue MD Phone: [phone] Performed at: [address] [id number] MD Thom Farnsworth MD Phone: [phone]
--- NOTE | 2019-08-08 08:38 | PDOC1 ---
History and Physical Date of Admission Date of Admission DATE: 08/04/19 Identification/Chief Complaint Chief Complaint Dysphagia Source Source: Patient History of Present Illness History of Present Illness 68 y/o female with intermittent dysphagia. Occasionally regurgitates offending bolus. Prior EGD/dilation 3 years ago. H/o GERD, on BID PPI. Past Medical History Cardiovascular: HTN, Hyperlipidemia Pulmonary: Asthma, COPD Psych: Anxiety, Depression Musculoskeletal: Osteoarthritis Endocrine: Diabetes Past Surgical History Past Surgical History: No pertinent history Family History Family History: Other (No GI family history of note.) Social History Smoke: 1 pack per day ALCOHOL: occassional Drugs: None Current Medications Current Medications Current Medications Ringer's Solution 1,000 ml @ 50 mls/hr Q20H IV Last administered on 08/04/19at 12:21; Start 08/04/19 at 07:00; Stop 08/04/19 at 18:59; Status DC Propofol (Diprivan) 200 mg STK-MED ONCE IV ; Start 08/04/19 at 12:12; Stop 08/04/19 at 12:12; Status DC Active Scripts Active [place] 5-325 Tablet (Acetaminophen/Hydrocodone Bitart) 1 Each Tablet 1 Tab PO PRN Q6HRS PRN Reported Allopurinol 300 Mg Tablet 300 Mg PO DAILY Neurontin (Gabapentin) 600 Mg Tablet 300 Mg PO TID Montelukast Sodium Tablet (Montelukast Sodium) 10 Mg Tablet 10 Mg PO HS Zyrtec (Cetirizine Hcl) 10 Mg Tablet 10 Mg PO HS Plaquenil (Hydroxychloroquine Sulfate) 200 Mg Tablet 200 Mg PO DAILY Cymbalta (Duloxetine Hcl) 60 Mg Capsule.dr 60 Mg PO DAILY Glipizide 5 Mg Tablet 5 Mg PO DAILY Lipitor (Atorvastatin Calcium) 40 Mg Tablet 40 Mg PO HS Lisinopril 40 Mg Tablet 10 Mg PO DAILY Hydrochlorothiazide Capsule (Hydrochlorothiazide) 12.5 Mg Capsule 12.5 Mg PO DAILY Metformin Hcl 850 Mg Tablet 850 Mg PO BIDWMEALS Flonase Allergy Relief (Fluticasone Propionate) 9.9 Ml [place].susp 2 Sprays NS DAILY Children's Aspirin (Aspirin) 81 Mg Tab.chew 81 Mg PO DAILY Allergies Allergies: Coded Allergies: doxycycline (Verified Allergy, Intermediate, rash, 08/04/19) ROS Review of System Otherwise negative. Physical Exam General: Alert, Oriented X3, Cooperative, No acute distress Lungs: Clear to auscultation Heart: S1S2, RRR, no gallops, no murmurs Abdomen: Normal bowel sounds, Soft, No tenderness, No hepatosplenomegaly, No masses Rectal Exam: not examined Extremities: No cyanosis, No edema Skin: No significant lesion Neuro: Normal gait, Normal speech, Strength at 5/5 X4 ext, Normal tone, Sensation intact, Cranial nerves 3-12 NL, Reflexes 2+ Psych/Mental Status: Mental status NL, Mood NL Vitals Vitals Vital Signs Date Time Temp Pulse Resp B/P (MAP) Pulse Ox O2 Delivery O2 Flow Rate FiO2 08/04/19 13:31 66 20 126/64 96 Room Air 08/04/19 13:01 97.0 2 97.0 VTE Prophylaxis Ordered VTE Prophylaxis Devices: No VTE Pharmacological Prophylaxi: No Assessment/Plan Assessment/Plan IMP: Dysphagia PLAN: EGD ROXIE MIRELES MD Aug 08, 2019 08:38
== END ==
LOC: ENDOS 11:59
PROVIDERS: ATTEND Internal Medicine Gastroenterology
DX: R13.10 Dysphagia, unspecified (principal); K21.0 Gastro-esophageal reflux disease with esophagitis; I10 Essential (primary) hypertension; E78.00 Pure hypercholesterolemia, unspecified; E78.5 Hyperlipidemia, unspecified; J44.9 Chronic obstructive pulmonary disease, unspecified; F41.9 Anxiety disorder, unspecified; F32.9 Major depressive disorder, single episode, unspecified; E11.9 Type 2 diabetes mellitus without complications; F17.210 Nicotine dependence, cigarettes, uncomplicated; Z72.89 Other problems related to lifestyle; Z88.1 Allergy status to other antibiotic agents
CPT/HCPCS: 43239; 43450; 88305; 88312; J2704

== ENCOUNTER 2019-08-15 18:39 | Observation (INO) | payer OTHER, MEDICARE ==
[~2019-08-15] VITALS: Ht 157.5 cm; Wt 76.3 kg
[~2019-08-15 18:39] MED LIST changes: -IV RINGERS,LACTATED 1000ML 1,000 ML IV SCH; -PROPOFOL 10 MG/ML (20ML) VIAL. IV ONE
[2019-08-15 19:51] LABS: BASO # 0.1 x10^3/uL (0.0-0.2); BASO % 1 % (0-3); EOS # 0.2 x10^3/uL (0.0-0.7); EOS % 2 % (0-3); HEMATOCRIT 31.3 % (36.0-47.0); HEMOGLOBIN 10.5 g/dL (12.0-15.5); LYMPH # 1.3 x10^3/uL (1.0-4.8); LYMPH % 13 % (24-48); MEAN CORPUSCULAR HEMOGLOBIN 30 pg (25-35); MEAN CORPUSCULAR HGB CONC 34 g/dL (31-37); MEAN CORPUSCULAR VOLUME 88 fL (79-100); MONO # 0.6 x10^3/uL (0.0-1.1); MONO % 6 % (0-9); NEUT # 7.8 x10^3/uL (1.8-7.7); NEUT % 79 % (31-73); PLATELET COUNT 279 x10^3/uL (140-400); RED BLOOD COUNT 3.54 x10^6/uL (3.50-5.40); RED CELL DISTRIBUTION WIDTH 16.8 % (11.5-14.5); WHITE BLOOD COUNT 9.9 x10^3/uL (4.0-11.0)
--- NOTE | 2019-08-15 19:54 | RAD ---
Exam: Right knee 3 views INDICATION: Right shoulder pain after fall TECHNIQUE: Frontal, lateral and oblique views of the right knee Comparisons: None FINDINGS: Bone mineralization is normal. No acute or healed fractures. There is mild soft tissue swelling at the knee. Joint spaces are well-maintained. IMPRESSION: Soft tissue swelling around the knee without underlying osseous abnormality identified. Electronically signed by: Salma Flowers MD (08/15/2019 7:51 PM) [id number]
--- NOTE | 2019-08-15 19:55 | RAD ---
SHOULDER 2+V RIGHT 08/15/2019 7:10 PM INDICATION: Right shoulder pain after fall COMPARISON: None available. TECHNIQUE: 3 views the right shoulder are provided. FINDINGS/ IMPRESSION: There is no acute fracture or dislocation. Joint spaces are maintained. Bone mineralization is within normal limits. Regional soft tissues are within normal limits. There is no soft tissue gas or osseous erosion. No radiopaque foreign body. Increased sclerosis along the superolateral aspect of the right humeral head is suggestive of chronic rotator cuff arthropathy. No definite cortical depression. Electronically signed by: Krissy Zurita MD (08/15/2019 7:52 PM) [facility]
[2019-08-15 20:03] LABS: CALCIUM 8.6 mg/dL (8.5-10.1); CREATININE 1.4 mg/dL (0.6-1.0); GFR 37.6; POTASSIUM 3.6 mmol/L (3.5-5.1); PROTHROMBIN TIME PATIENT 13.1 SEC (11.7-14.0)
--- NOTE | 2019-08-15 20:08 | RAD ---
Exam: CT head and cervical spine without contrast INDICATION: Fall, hit right shoulder and right knee TECHNIQUE: Sequential axial images through the head and cervical spine were obtained without the administration of IV contrast. Comparisons: None FINDINGS: Head: No focal parenchymal lesion or hemorrhage is identified. There is no midline shift or sulcal effacement. No acute vascular territory infarction is identified. Singh-white distinction is preserved. The ventricular system is within normal limits without compression hydrocephalus. The basal cisterns are well maintained. The visualized portions of the paranasal sinuses and mastoid air cells are well-pneumatized. No acute fractures. Cervical spine: Straightening of the cervical spine which may be positional. Vertebral body heights are well-maintained. Fracture to the cervical spine is not identified. No significant spondylotic change in the cervical spine. Visualized paraspinal soft tissues are unremarkable. IMPRESSION: 1. No acute intracranial abnormality. 2. Negative CT C-spine for acute traumatic injury. Exposure: One or more of the following in the visualized dose reduction techniques were utilized for this examination: 1. Automated exposure control 2. Adjustment of the MA and/or KV according to patient size Use of iterative of reconstructive technique Electronically signed by: Salma Flowers MD (08/15/2019 8:06 PM) [id number]
[2019-08-15 20:09] LABS: ALBUMIN 3.4 g/dL (3.4-5.0); MAGNESIUM 1.3 mg/dL (1.8-2.4); TOTAL BILIRUBIN 0.4 mg/dL (0.2-1.0); TOTAL PROTEIN 6.7 g/dL (6.4-8.2)
[2019-08-15] MEDS ORDERED: ONDANSETRON PF 4 MG/2 ML VIAL. IV ONE (20:30)
[2019-08-15] MEDS ORDERED: fentaNYL PF VIAL 100 MCG/2 ML VIAL IV ONE (20:30)
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
[2019-08-15] MEDS ORDERED: IV NORMAL SALINE 1000ML BAG 1,000 ML IV ONE (21:15)
[2019-08-15 22:15] VITALS: BP 113/57
[2019-08-15] MEDS ORDERED: IV NORMAL SALINE 1000ML BAG 1,000 ML IV SCH (22:45)
[2019-08-15] MEDS: HYDROcodone/APAP 5/325MG 1 TAB TABLET PO PRN (23:15)
[2019-08-16 03:00] VITALS: BP 138/42
[2019-08-16] MEDS: HYDROcodone/APAP 5/325MG 1 TAB TABLET PO PRN ×3 (03:04→13:34)
[2019-08-16 05:40] LABS: CALCIUM 8.1 mg/dL (8.5-10.1); CREATININE 1.1 mg/dL (0.6-1.0); GFR 49.7; POTASSIUM 3.6 mmol/L (3.5-5.1)
[2019-08-16 07:00] VITALS: BP 123/59
[2019-08-16] MEDS ORDERED: ASPIRIN CHEWABLE 81 MG TABLET. PO SCH (08:00)
[2019-08-16] MEDS ORDERED: metFORMIN 850 MG TABLET PO SCH (08:00)
[2019-08-16] MEDS ORDERED: LISINOPRIL 10 MG TABLET PO SCH (09:00)
[2019-08-16] MEDS ORDERED: glipiZIDE 5 MG TABLET PO SCH (09:00)
[2019-08-16] MEDS ORDERED: ALLOPURINOL 300 MG TABLET. PO SCH (09:00)
[2019-08-16] MEDS ORDERED: HYDROXYCHLOROQUINE 200 MG TABLET PO SCH (09:00)
[2019-08-16] MEDS ORDERED: FLUTICASONE 50MCG/NASAL SPRAY 16GM BOTTLE. NS SCH (09:00)
[2019-08-16] MEDS ORDERED: hydroCHLOROthiazide 12.5 MG CAPSULE PO SCH (09:00)
[2019-08-16] MEDS ORDERED: DULoxetine HCL 30 MG CAPSULE.DR PO SCH (09:00)
[2019-08-16] MEDS: GABAPENTIN 300 MG CAPSULE. PO SCH ×2 (09:12→15:55)
[2019-08-16 11:00] VITALS: BP 122/66
[2019-08-16] MEDS ORDERED: predniSONE 10 MG TABLET PO SCH (11:00)
[2019-08-16] MEDS ORDERED: PRED-220 PO (11:01)
--- NOTE | 2019-08-16 11:10 | PDOC ---
Provider Note Provider Note Combined H&P and Discharge summary dictated.#[id number]. Justicifation of Admission Dx: Justifications for Admission: Justification of Admission Dx: Yes MARY MOCK MD Aug 16, 2019 11:10
[2019-08-16] MEDS ORDERED: MAGNESIUM SULFATE 2GM 50 ML IV ONE (12:00)
[2019-08-16] MEDS ORDERED: DICLOFENAC SODIUM 1% TOPICAL GEL 100GM TUBE. TP SCH (13:00)
[2019-08-16] MEDS ORDERED: DICL150D4 TP (14:27)
[2019-08-16] MEDS ORDERED: DICL100G24 TP (14:28)
[2019-08-16 15:00] VITALS: BP 107/63
--- NOTE | 2019-08-16 16:09 | NUR ---
Discharge Note: Patient was discharged home with self care. Patients IV was discontinued without any complications per REINIER. Patient was given discharge summary/instructions, follow-ups, prescriptions and educational material. Patient did not have any further questions or concerns. Patient was taken to the main entrance via wheelchair with all personal belongings, accompanied by REINIER Solorzano, where her family was waiting for her to take her home.
--- NOTE | 2019-08-16 17:02 | HP ---
ADMIT DATE: 08/15/2019 COMBINED HISTORY AND PHYSICAL AND DISCHARGE SUMMARY DATE OF DISCHARGE: 08/16/2019 ATTENDING PHYSICIAN: Dr. Mana Martinez. HISTORY OF PRESENT ILLNESS: The patient is a 68-year-old female. She had a fall at [employer] where she works in the [employer] and she says she has been outside for 5 minutes and she became dizzy and lightheaded and had a fall onto the right side and she had injured her shoulder and the knee. She denies any loss of consciousness. No chest pain and she is brought to the hospital. CT head, C-spine was negative. X-ray of the shoulder, no fracture. X-ray of the knee, no fractures and the patient also was found to have dehydration with elevated creatinine. The patient was given IV fluids, was admitted overnight for observation. EKG is negative for ischemia, cardiac monitored, no arrhythmias. The patient is feeling better this morning. PAST MEDICAL HISTORY: Arthritis, diabetes, GERD, hypertension, hyperlipidemia, lupus, neuropathy. PAST SURGICAL HISTORY: Hysterectomy, tonsillectomy, kidney stone, back surgery, hernia repair and esophageal stretching. PERSONAL HISTORY: Smoker, half a pack. Denies alcohol or street drugs. FAMILY HISTORY: Positive for diabetes, heart disease. REVIEW OF SYSTEMS: Denies any chest pain, shortness of breath. Denies any weakness, only pain in the shoulder and the right knee. ALLERGIES: DOXYCYCLINE. MEDICATIONS AT HOME: Allopurinol 300 mg daily, aspirin 81 mg daily, atorvastatin 40 mg daily, Zyrtec 10 mg daily, Cymbalta 60 mg daily, fluticasone daily, gabapentin 300 mg 3 times daily, glipizide 5 mg daily, hydrocodone q.6h., hydroxychloroquine, Plaquenil 200 mg daily, lisinopril 40 mg daily, metformin 850 mg twice a day, Singulair 10 mg daily. PHYSICAL EXAMINATION: GENERAL: The patient is pleasant, slightly in pain from the knee injury. VITAL SIGNS: At the time of admission shows a temperature 98, pulse 76, respirations 14, blood pressure 105/60, 94 on room air. HEENT: Head is atraumatic. Pupils equal. Oral cavity: No congestion. NECK: Supple. Thyroid not enlarged. JVD not elevated. No carotid bruit, no mass palpable. CHEST: Symmetrical. CARDIOVASCULAR: S1, S2. No murmurs. LUNGS: Clear to auscultation. No wheezing. ABDOMEN: Soft, bowel sounds present, no mass palpable. EXTERNAL GENITALIA: No Moran. RECTAL: Deferred. EXTREMITIES: Examination of the shoulder, some bruising, some pain, but able to move. Right knee has some [place] wrap, some swelling. The patient is slightly limping when she puts weight on the right knee. EXTREMITIES: No calf tenderness, no edema. NEUROLOGIC: Moving all extremities. No focal deficits noted. SKIN: Normal skin turgor. LYMPH NODES: No palpable lymph nodes. LABORATORY DATA: White count 10, hemoglobin 10.5, platelets 279. INR is 1.0. Electrolytes show sodium 142, potassium 3.6, chloride 104, bicarbonate 27, anion gap 11, BUN 23, creatinine 1.4, glucose 144. Magnesium 1.3. LFTs normal. CPK 222. CT head, no fractures. CT spine, no fracture. X-ray of the knee, no fractures. Shoulder x-ray probably rotator cuff injury, but no fractures. EKG done, report is pending. FINAL IMPRESSION: 1. Mechanical fall resulting in injury to the right shoulder and also a soft tissue injury to the knee. 2. Acute renal insufficiency, probably from dehydration and heat exhaustion. 3. Diabetes. 4. Hypertension. 5. Hyperlipidemia. 6. Lupus. PLAN: At this time, she was admitted to the hospital overnight observation. segment block layer. IV hydration. Creatinine came down to 1.1. The patient at rehab consult will probably need a knee brace and maybe an MRI down the road as outpatient. MARY MOCK MD DR: ANGEL/renae JOB#: [id number] / [id number] MANA Lopez MD
[2019-08-16] MEDS ORDERED: MONTELUKAST SODIUM 10 MG TABLET. PO SCH (21:00)
[2019-08-16] MEDS ORDERED: CETIRIZINE HCL 10 MG TABLET. PO SCH (21:00)
[2019-08-16] MEDS ORDERED: ATORVASTATIN CALCIUM 40 MG TABLET. PO SCH (21:00)
== END 2019-08-16 16:13 | disposition home or self-care (01) ==
LOC: ER 18:39 → 2 SOUTH 21:20
PROVIDERS: ADMIT Internal Medicine; ATTEND Internal Medicine
DX: S80.01XA Contusion of right knee, initial encounter (principal); N17.9 Acute kidney failure, unspecified; M25.511 Pain in right shoulder; E78.00 Pure hypercholesterolemia, unspecified; E11.40 Type 2 diabetes mellitus with diabetic neuropathy, unspecified; E78.5 Hyperlipidemia, unspecified; I10 Essential (primary) hypertension; K21.9 Gastro-esophageal reflux disease without esophagitis; Z87.442 Personal history of urinary calculi; Z90.710 Acquired absence of both cervix and uterus; Z79.899 Other long term (current) drug therapy; Z87.891 Personal history of nicotine dependence; W18.30XA Fall on same level, unspecified, initial encounter; Y92.512 Supermarket, store or market as the place of occurrence of the external cause; Y93.89 Activity, other specified; Y99.8 Other external cause status
CPT/HCPCS: 36415; 70450; 72125; 73030; 73562; 80048; 80053; 82553; 82962; 83735; 84484; 85025; 85610; 96361; 96365; 96366; 96375; 97161; 99285; G0378; G0379; J2405; J3010; J3475; J7030; J7512

== ENCOUNTER → 2019-11-18 | Outpatient (CLI) | payer MEDICARE ==
[~2019-11-18] MED LIST changes: -CETI10TA24 PO; +CETI10TA74 PO; +DICL100G24 TP; +DICL150D4 TP; +PRED-220 PO
--- NOTE | 2019-11-18 15:58 | KCIC ---
Study: CR WRIST 3V LEFT Indication: Posterior wrist pain after a fall 2 weeks prior. Comparison: None. Findings: No displaced fracture seen at the wrist. No traumatic malalignment. A very faint focus of apparent increased attenuation dorsal to the carpal bones is only seen on the lateral view and is not typical of a fracture. Scattered carpal cysts such as within the capitate, scaphoid and lunate. A well-corticated erosion is seen along the radial aspect of the scaphoid waist. Mild arthrosis at the distal radioulnar joint. Minimal irregularity at the volar/radial aspect of the distal scaphoid is not indicative of fracture. The soft tissues appear edematous along the radial aspect of the distal forearm and wrist Impression: 1. The soft tissues may be edematous at the radial aspect of the distal forearm/wrist but no fracture is seen or traumatic malalignment. 2. Small area of scalloping at the radial aspect of the scaphoid waist is suggestive of a chronic erosion. No erosion with acute features is seen to suggest an active inflammatory arthritis. 3. Scattered carpal cysts and mild distal radioulnar joint arthrosis. Electronically signed by: TYLER BUENO MD (11/18/2019 3:55 PM) [id number]
--- NOTE | 2019-11-18 16:47 | KCIC ---
EXAM: Lumbar spine, 5 views. HISTORY: Pain. COMPARISON: None. FINDINGS: 5 views of the lumbar spine are obtained. There is levoscoliosis centered at L4. There is hyperlordosis. There is grade 1 anterolisthesis of L4 on L5 and L5 on S1. There is mild retrolisthesis of L2 on L3 and L3 on L4. There is multilevel endplate remodeling and facet arthropathy. No fracture is seen. There is degenerative subchondral sclerosis involving the inferior sacroiliac joints IMPRESSION: 1. Multilevel degenerative change involving the lumbar spine. 2. Lumbar hyperlordosis, scoliosis and multilevel listhesis, described above. Electronically signed by: Salome Valladares MD (11/18/2019 4:44 PM) [id number]
== END | disposition home or self-care (01) ==
LOC: KCIC 15:10
PROVIDERS: ATTEND Internal Medicine
DX: M19.032 Primary osteoarthritis, left wrist (principal); M47.816 Spondylosis without myelopathy or radiculopathy, lumbar region; M46.1 Sacroiliitis, not elsewhere classified; M43.17 Spondylolisthesis, lumbosacral region; M41.86 Other forms of scoliosis, lumbar region
CPT/HCPCS: 72110; 73110

== ENCOUNTER → 2020-07-14 | Outpatient (CLI) | payer MEDICARE ==
[~2020-07-14] MED LIST changes: -LISI40TA2 PO; +LISI40TA6 PO
--- NOTE | 2020-07-14 11:30 | RAD ---
EXAM: Head CT without contrast. HISTORY: Headache. Trauma. TECHNIQUE: Computed tomographic images of the head were obtained without contrast. *One or more of the following individualized dose reduction techniques were utilized for this examina tion: 1. Automated exposure control. 2. Adjustment of the mA and/or kV according to patient size. 3. Use of iterative reconstruction technique. COMPARISON: 08/15/2019. FINDINGS: There is no acute or subacute extra-axial or intraparenchymal hemorrhage. There is no mass effect or midline shift. There is no hydrocephalus. There are areas of decreased attenuation within the cerebral white matter, nonspecific and likely rel ated to chronic small vessel disease. There is mild cerebral volume loss. The visualized portions of the orbits, paranasal sinuses and mastoid air cells are unremarkable. No s uspicious calvarial lesion is seen. IMPRESSION: No acute intracranial findings. Electronically signed by: Salome Valladares MD (07/14/2020 11:25 AM) [id number]
== END ==
LOC: CT 11:20
PROVIDERS: ATTEND Internal Medicine
DX: R51.9 Headache, unspecified (principal)
CPT/HCPCS: 70450

== ENCOUNTER 2020-07-25 11:57 | Emergency (ER) | payer MEDICARE ==
[~2020-07-25] VITALS: Ht 157.5 cm; Wt 70.0 kg
[2020-07-25] MEDS ORDERED: ACETAMINOPHEN 500 MG TABLET PO ONE (14:30)
[2020-07-25] MEDS ORDERED: DEXAMETHASONE 4 MG TABLET PO ONE (14:30)
[2020-07-25] MEDS ORDERED: diphenhydrAMINE HCL 25 MG CAPSULE PO ONE (14:30)
--- NOTE | 2020-07-25 14:50 | RAD ---
CT HEAD AND C-SPINE WO dated 07/25/2020 2:15 PM. Comparison: None. Clinical Indication: Reason: fall, blurry vision and confusion, concussion? / Spl. Instructions: / H istory: HEAD AND NECK PAIN Technical factors: Contiguous 5 mm axial images of the head were obtained from the skullbase to the v ertex. No contrast was administered. In addition, 3 mm axial images of the cervical spine were acquir ed with thin cut coronal and sagittal reconstructions. One or more of the following individualized dose reduction techniques were utilized for this examinat ion: 1. Automated exposure control 2. Adjustment of the mA and/or kV according to patient size 3. Use of iterative reconstruction technique Findings head: Ventricles and sulci are mildly prominent for age. No midline shift or mass effect. Brain parenchyma is of normal attenuation. No hemorrhage or extra axial collection. Posterior fossa and brainstem unre markable. Visualized paranasal sinuses and mastoid air cells are clear. No apparent calvarial abnormality. IMPRESSION HEAD: No evidence of acute intracranial abnormality. Findings cervical spine: Images were acquired from the skull base to T2. There is straightening of the normal cervical lordosi s, otherwise sagittal alignment is anatomic. Vertebral body heights are maintained. No prevertebral s oft tissue swelling. Posterior elements are intact. No fractures are identified. Mild endplate hypertrophic changes throughout. Mild multilevel uncovertebral spurring and facet arthr opathy. No significant central canal or foraminal compromise. There is mild bilateral foraminal narro wing at the C4-C5 level. No apparent focal disc herniation. Visualized soft tissue structures are unremarkable. There are atherosclerotic calcific changes of the bilateral carotid bifurcation. Limited images of the lung apices are clear. IMPRESSION CERVICAL SPINE: 1. No evidence of fracture or malalignment. 2. Mild multilevel spondylosis. Electronically signed by: Nagi Joseph MD (07/25/2020 2:48 PM) [id number]
--- NOTE | 2020-07-25 15:09 | PHYS DOC ---
Past Medical History Past Medical History: Arthritis, Diabetes-Type II, GERD, High Cholesterol, Hypertension Additional Past Medical Histor: lupus, Neuropathy Past Surgical History: Hysterectomy, Tonsillectomy Additional Past Surgical Histo: kidney stones, back surgery, hernia, esophageal stretching, hemorrhoidectom Smoking Status: Current Every Day Smoker Alcohol Use: Rarely Drug Use: None General Adult EDM: Chief Complaint: MECHANICAL FALL HPI: HPI: 69 yo F PMH HTN, HLD, DM, GERD, gout and OA presents the ED with complaints of left facial pain and seeing spots after patient fell yesterday while shopping. States she didn't see how far out the stand was and she tripped on it, landed forward on the left side of her face. Reports she ambulates with a cane. denies any loss of consciousness. No prior history of intracranial hemorrhage although states she is fallen a few times this month. Is not influence of any alcohol or drugs. Reports bruises to both forearms. No associated dizziness, lightheadedness, weakness, blurry vision, difficulties walking or neurologic deficits. Review of Systems: Review of Systems: Constitutional: Denies fever or chills. [] Eyes: Denies change in visual acuity. [] HENT: Denies nasal congestion or sore throat. [] Respiratory: Denies cough or shortness of breath. [] Cardiovascular: Denies chest pain or edema. [] GI: Denies abdominal pain, nausea, vomiting, bloody stools or diarrhea. [] : Denies dysuria or vaginal bleeding Musculoskeletal: Denies back pain or joint pain. [] Integument: Denies rash. Or diaphoresis Neurologic: Denies headache, neck pain, focal weakness or sensory changes. [] Endocrine: Denies polyuria or polydipsia. [] Lymphatic: Denies swollen glands. [] Psychiatric: Denies depression or anxiety. [] Heart Score: C/O Chest Pain: No Risk Factors: Risk Factors: DM, Current or recent (<one month) smoker, HTN, HLP, family history of CAD, obesity. Risk Scores: Score 0 - 3: 2.5% MACE over next 6 weeks - Discharge Home Score 4 - 6: 20.3% MACE over next 6 weeks - Admit for Clinical Observation Score 7 - 10: 72.7% MACE over next 6 weeks - Early Invasive Strategies Current Medications: Current Medications Medications (Trade) Dose Ordered Sig/Rama Start Time Stop Time Status Last Admin Dose Admin Acetaminophen (Tylenol) 1,000 mg 1X ONCE 07/25/20 14:30 07/25/20 14:31 DC 07/25/20 15:01 1,000 MG Dexamethasone (Decadron) 10 mg 1X ONCE 07/25/20 14:30 07/25/20 14:31 DC 07/25/20 15:01 10 MG Diphenhydramine HCl (Benadryl) 25 mg 1X ONCE 07/25/20 14:30 07/25/20 14:31 DC 07/25/20 15:01 25 MG Allergies: Allergies: Allergies Coded Allergies Type Severity Reaction Last Updated Verified doxycycline Allergy Intermediate rash 08/04/19 Yes Physical Exam: PE: Constitutional: Well developed, well nourished, no acute distress, non-toxic appearance. HENT: Normocephalic, atraumatic, no signs of head trauma, normal tympanic memb ranes bilaterally, no periorbital ecchymosis, no facial nerve paralysis or decreased sensation, Eyes: PERRLA, EOMI, conjunctiva normal, no discharge no conjunctival hemorrhage, no hyphema Neck: Normal range of motion, supple, Cardiovascular: S1/2 present, regular rhythm Lungs & Thorax: Speaking in full sentences, bilateral equal chest rise, no tachypnea or increased work of breathing Abdomen: soft, no tenderness, no pain with pelvic rocking Skin: Warm, dry, 2 x 2 centimeter area of purple coloration/contusion to the left forearm over dorsal aspect, petechiae over right dorsal forearm Back: No midline step offs or ttp, no CVA tenderness. [] Extremities: No tenderness, no cyanosis, no lower extremity edema, equal radial pulses, no deformities Neurologic: CN2-12 intact, steady agitAlert and oriented X 3, normal motor function, normal sensory function, no focal deficits noted. [] Psychologic: Affect normal, judgement normal, mood normal. [] Nexus C-spine criteria are negative: There is no post midline tenderness, the patient is not intoxicated, there is a normal level of alertness, there are no focal neurologic deficits and there are no distracting injuries. EKG: EKG: [] Radiology/Procedures: Radiology/Procedures: []IMAGING REPORT Signed PATIENT: BLAKE SANDERS ACCOUNT: [id number] : 1950 LOCATION: ER AGE: 69 SEX: F EXAM STATUS: REG ER ORD. PHYSICIAN: MARK BREEN DO REASON: fall, blurry vision and confusion, concussion? PROCEDURE: CT HEAD AND CERVICAL SPINE WO CT HEAD AND C-SPINE WO dated 07/25/2020 2:15 PM. Comparison: None. Clinical Indication: Reason: fall, blurry vision and confusion, concussion? / Spl. Instructions: / History: HEAD AND NECK PAIN Technical factors: Contiguous 5 mm axial images of the head were obtained from the skullbase to the vertex. No contrast was administered. In addition, 3 mm axial images of the cervical spine were acquired with thin cut coronal and sagittal reconstructions. One or more of the following individualized dose reduction techniques were utilized for this examination: 1. Automated exposure control 2. Adjustment of the mA and/or kV according to patient size 3. Use of iterative reconstruction technique Findings head: Ventricles and sulci are mildly prominent for age. No midline shift or mass effect. Brain parenchyma is of normal attenuation. No hemorrhage or extra axial collection. Posterior fossa and brainstem unremarkable. Visualized paranasal sinuses and mastoid air cells are clear. No apparent calvarial abnormality. IMPRESSION HEAD: No evidence of acute intracranial abnormality. Findings cervical spine: Images were acquired from the skull base to T2. There is straightening of the normal cervical lordosis, otherwise sagittal alignment is anatomic. Vertebral body heights are maintained. No prevertebral soft tissue swelling. Posterior elements are intact. No fractures are identified. Mild endplate hypertrophic changes throughout. Mild multilevel uncovertebral spurring and facet arthropathy. No significant central canal or foraminal compromise. There is mild bilateral foraminal narrowing at the C4-C5 level. No apparent focal disc herniation. Visualized soft tissue structures are unremarkable. There are atherosclerotic calcific changes of the bilateral carotid bifurcation. Limited images of the lung apices are clear. IMPRESSION CERVICAL SPINE: 1. No evidence of fracture or malalignment. 2. Mild multilevel spondylosis. Electronically signed by: Nagi Joseph MD (07/25/2020 2:48 PM) [id number] DICTATED and SIGNED BY: NAGI JOSEPH MD DATE: 07/25/20 [id number] 0 Course & Med Decision Making: Course & Med Decision Making Pertinent Labs and Imaging studies reviewed. (See chart for details) Concern for accidental mechanical fall in a well-appearing patient, no signs of trauma. Symptoms occurred more than 24 hours ago. Will discharge home with strict ED return precautions were given for repeat head injury, confusion, lethargy, nausea, vomiting, chest pain, dyspnea neurologic deficits or syncope. Encouraged urgent outpatient follow-up with PMD and neurology as needed for definitive management. Life-threatening processes were considered but are low suspicion at this time, given history, physical exam and ED workup. Pt was educated on all prescription medications and adverse effects. All patient's questions were answered and pt was stable at time of discharge. Life/limb-threatening differential includes but is not limited to, intracranial hemorrhage, diffuse axonal injury, spinal cord syndrome, unstable cervical fracture or SCIWORA, fractures or joint dislocations, neurovascular injuries, organ injury or laceration, pneumothorax, pneumoperitoneum, pericardial tamponade, unstable pelvic fracture, compartment syndrome, flail chest or respiratory distress, burn injury or asphyxiation I spoken with the patient and her caregivers. I explained the patient's condition, diagnoses and treatment plan based on the information available to me at this time. I have answered the patient and her caregiver's questions and addressed any concerns. The patient and her caregivers have a good under standing of patient's diagnosis, condition and treatment plan as can be expected at this point. Vital signs have been stable. Patient's condition is stable and appropriate for discharge from the emergency department. Patient will pursue further outpatient evaluation with primary care physician or other designated or consulting physician as outlined in the discharge instructions. The patient and/or caregivers are agreeable to this plan of care and follow-up instructions have been explained in detail. The patient and/or caregivers have received these instructions in written form and have expressed an understanding of the discharge instructions. The patient and/or caregivers are aware that any significant change of condition or worsening of symptoms shou ld prompt immediate return to this or the closest emergency department or call to 911. Meghna Disclaimer: Meghna Disclaimer: This electronic medical record was generated, in whole or in part, using a voice recognition dictation system. Departure Departure Impression: Primary Impression: Blunt head trauma Additional Impression: Fall Disposition: HOME / SELF CARE / HOMELESS Condition: STABLE Referrals: MANA FELICIANO MD (PCP) In 24 to 48 hours Patient Instructions: Concussion and Brain Injury, Head Injury, Adult Additional Instructions: FOLLOW UP WITH NEUROLOGY: For definitive management/concussion evaluation [facility] [address], [address] [place] [address] EMERGENCY DEPARTMENT GENERAL DISCHARGE INSTRUCTIONS Thank you for coming to [facility] Emergency Department (ED) today and trusting us with you care. We trust that you had a positive experience in our Emergency Department. If you wish to speak to the department management, you may call the Director at [phone]. YOUR FOLLOW UP INSTRUCTIONS ARE FOLLOWS: 1. Do you have a private Doctor? If you do not have a private doctor, please ask for a resource list of physicians or clinics that may be able to assist you with follow up care. 2. The Emergency Physicain has interpreted your x-rays. The X-Ray specialist will also review them. If there is a change in the findings, you will be notified in 48 hours when at all possible. 3. A lab test or culture has been done, your results will be reviewed and you will be notified if you need a change in treatment. ADDITIONAL INSTRUCTIONS AND INFORMATION: 1. Your care today has been supervised by a physician who is specially trained in emergency care. Many problems require more than one evaluation for a complete diagnosis and treatment. We recommend that you schedule your follow up appointment as recommended to ensure complete treatment of you illness or injury. If you are unable to obtain follow up care and continue to have a problem, or if your condition worsens, we recommend that you return to the ED. 2. We are not able to safely determine your condition over the phone nor are we able to give sound medical advice over the phone. For these safety reasons, if you call for medical advice we will ask you to come to the ED for further evaluation. 3. If you have any questions regarding these discharge instructions please call the ED at [phone]. SAFETY INFORMATION: In the interest of safety, wellness, and injury prevention; we encourage you to wear your sealbelt, if you smoke; quite smoking, and we encourage family to use a protective helmet for bicycling and other sporting events that present an increased risk for head injury. IF YOUR SYMPTOMS WORSEN OR NEW SYMPTOMS DEVELOP, OR YOU HAVE CONCERNS ABOUT YOUR CONDITION; OR IF YOUR CONDITION WORSENS WHILE YOU ARE WAITING FOR YOUR FOLLOW UP MICHELLE OINTMENT; EITHER CONTACT YOUR PRIMARY CARE DOCTOR, THE PHYSICIAN WHOSE NAME AND NUMBER YOU WERE GIVEN, OR RETURN TO THE ED IMMEDIATELY. MARK HENRY DO Jul 25, 2020 15:09
[2020-07-25 15:30] VITALS: BP 141/71
== END 2020-07-25 15:38 | disposition home or self-care (01) ==
LOC: ER 11:57
DX: S09.90XA Unspecified injury of head, initial encounter (principal); E11.40 Type 2 diabetes mellitus with diabetic neuropathy, unspecified; K21.9 Gastro-esophageal reflux disease without esophagitis; E78.00 Pure hypercholesterolemia, unspecified; I10 Essential (primary) hypertension; Z90.710 Acquired absence of both cervix and uterus; F17.200 Nicotine dependence, unspecified, uncomplicated; M10.9 Gout, unspecified; R41.0 Disorientation, unspecified; Z88.1 Allergy status to other antibiotic agents; W18.39XA Other fall on same level, initial encounter; Y93.89 Activity, other specified; Y92.89 Other specified places as the place of occurrence of the external cause; Y99.8 Other external cause status
CPT/HCPCS: 70450; 72125; 99285; Q0163

== ENCOUNTER → 2021-05-24 | Outpatient (CLI) | payer MEDICARE ==
[~2021-05-24] MED LIST changes: -DICL150D4 TP; +DICL150D9 TP; -DULO60CA6 PO; +DULO60CA7 PO
--- NOTE | 2021-05-24 15:45 | KCIC ---
EXAMINATION: XR FEMUR_LEFT, XR KNEE _3 VIEWS_LT CLINICAL HISTORY: Chronic left thigh and knee pain, no known injury. TECHNIQUE: XR FEMUR_LEFT, XR KNEE _3 VIEWS_LT Number of Images/Views: 4 femur, 3 knee COMPARISON: None FINDINGS: Marked medial compartment narrowing in the left knee with near [id number] contact. Chondrocalcinosi s in the lateral compartment. Tricompartmental small marginal osteophytes small joint effusion. Left hip joint incompletely evaluated. No evidence of destructive osseous lesion. No acute fracture. No focal soft tissue swelling. IMPRESSION: Degenerative changes left knee, advanced in the medial compartment. No acute osseous abnormality. Electronically signed by: Juan Berger DO (05/24/2021 3:42 PM) [id number]
--- NOTE | 2021-05-24 15:45 | KCIC ---
EXAMINATION: XR FEMUR_LEFT, XR KNEE _3 VIEWS_LT CLINICAL HISTORY: Chronic left thigh and knee pain, no known injury. TECHNIQUE: XR FEMUR_LEFT, XR KNEE _3 VIEWS_LT Number of Images/Views: 4 femur, 3 knee COMPARISON: None FINDINGS: Marked medial compartment narrowing in the left knee with near [id number] contact. Chondrocalcinosi s in the lateral compartment. Tricompartmental small marginal osteophytes small joint effusion. Left hip joint incompletely evaluated. No evidence of destructive osseous lesion. No acute fracture. No focal soft tissue swelling. IMPRESSION: Degenerative changes left knee, advanced in the medial compartment. No acute osseous abnormality. Electronically signed by: Juan Berger DO (05/24/2021 3:42 PM) [id number]
== END ==
LOC: KCIC 14:12
PROVIDERS: ATTEND Internal Medicine
DX: M17.12 Unilateral primary osteoarthritis, left knee (principal); M25.462 Effusion, left knee; M11.262 Other chondrocalcinosis, left knee; M25.862 Other specified joint disorders, left knee; M25.762 Osteophyte, left knee
CPT/HCPCS: 73562